=== PATIENT | female | born 1930 | race Caucasian/White ===

== ENCOUNTER → 2016-10-12 | Outpatient (CLI) | payer MEDICARE ==
[~2016-10-12] MED LIST: OMNIPAQUE 350 MG/ML, 75ML BOTTLE ONE
== END | disposition home or self-care (01) ==
LOC: CFH 13:58
PROVIDERS: ATTEND Genetic Counselor, MS
DX: R91.1 Solitary pulmonary nodule (principal)
CPT/HCPCS: 71260; 82565; Q9967

== ENCOUNTER 2018-07-25 11:49 | Emergency (ER) | payer MEDICARE ==
[~2018-07-25] VITALS: Ht 157.5 cm; Wt 42.6 kg
--- NOTE | 2018-07-25 12:08 | NUR ---
PT REPORTS DIARRHEA FOR 2+ WEEKS, DENIES N/V.
--- NOTE | 2018-07-25 12:19 | NUR ---
PA IN TO SEE PT
[2018-07-25] MEDS ORDERED: AMLO-150 PO (12:20)
[2018-07-25] MEDS ORDERED: LISI-170 PO (12:20)
[2018-07-25] MEDS ORDERED: LEVO75TA5 PO (12:20)
[2018-07-25] MEDS ORDERED: ATEN50TA41 PO (12:20)
--- NOTE | 2018-07-25 12:22 | NUR ---
PT TO XRAY
[2018-07-25 12:51] LABS: BASOPHILS # (AUTO) 0.08 x10^3/uL (0-0.1); BASOPHILS % (AUTO) 1 % (0-1); EOSINOPHILS # (AUTO) 0.05 x10^3/uL (0-0.4); EOSINOPHILS % (AUTO) 1 % (1-7); LYMPHOCYTES # (AUTO) 1.28 x10^3/uL (1-3.4); LYMPHOCYTES % (AUTO) 16 % (22-44); MD NO; MEAN CORPUSCULAR HEMOGLOBIN 30.2 pg (27.0-34.8); MEAN CORPUSCULAR HGB CONC 33.1 g/dL (32.4-35.8); MEAN CORPUSCULAR VOLUME 91.1 fL (80-100); MEAN PLATELET VOLUME 8.5 fL (7.4-10.4); MONOCYTES % (AUTO) 4 % (2-9); NEUTROPHILS # (AUTO) 6.08 x10^3/uL (1.8-6.8); NEUTROPHILS % (AUTO) 78 % (42-75); PLATELET COUNT 278 x10^3/uL (130-400); RED BLOOD COUNT 4.37 x10^6/uL (3.82-5.3); RED CELL DISTRIBUTION WIDTH 13.7 % (9.6-15.2)
[2018-07-25 13:02] LABS: ALANINE AMINOTRANSFERASE 27 U/L (12-78); ALBUMIN 3.6 g/dL (3.4-5.0); ANION GAP 5 mmol/L (5-15); CALCIUM 9.2 mg/dL (8.5-10.1); CHLORIDE 103 mmol/L (98-107); CREATININE 0.76 mg/dL (0.55-1.02)
[2018-07-25 13:04] LABS: ALKALINE PHOSPHATASE 54 U/L (45-117); BILIRUBIN,TOTAL 0.5 mg/dL (0.2-1.0); TOTAL PROTEIN 6.9 g/dL (6.4-8.2)
--- NOTE | 2018-07-25 13:18 | NUR ---
PT UNABLE TO HAVE A BOWL MOVEMENT. PT REQUESTING FOOD TO HELP FACILITATE BM.
--- NOTE | 2018-07-25 13:55 | NUR ---
PT RECIEVED FOOD TO HELP FACILITATE BM
[2018-07-25 14:03] VITALS: BP 172/77
--- NOTE | 2018-07-25 15:04 | NUR ---
PT UNABLE TO PROVIDE STOOL SAMPLE. PT RECIEVED EDUCAITON ABOUT OUTPATIENT FOLLOW UP FOR STOOL STUDIES.
== END 2018-07-25 15:06 | disposition home or self-care (01) ==
LOC: ED 14:01
DX: R19.7 Diarrhea, unspecified (principal); I10 Essential (primary) hypertension; Z90.710 Acquired absence of both cervix and uterus
CPT/HCPCS: 36415; 74021; 80053; 85025; 99284